=== PATIENT | female | born 1960 | race Caucasian/White ===

== ENCOUNTER 2023-06-20 14:32 | Emergency (ER) | payer BC ==
[~2023-06-20] VITALS: Ht 170.2 cm; Wt 72.6 kg
[2023-06-20 14:47] VITALS: BP 164/80; PULSE 78; RESP 18; O2SAT 98
[2023-06-20] MEDS: FAMOTIDINE 20MG VIAL IV ONE ×2 (15:52→15:56)
[2023-06-20] MEDS: KETOROLAC 15MG/ML VIAL (15MG/ML) IV ONE ×2 (15:53→15:56)
[2023-06-20] MEDS ORDERED: LIDOCAINE HCL 1% 20 ML VIAL ONE (16:39)
[2023-06-20] MEDS ORDERED: ACETAMINOPHEN 500 MG TABLET PO ONE (17:00)
[2023-06-20] MEDS ORDERED: TETANUS/DIPHTHERIA TOXOID [ADULT] 0.5 ML VIAL IM ONE (17:30)
== END 2023-06-20 17:20 | disposition home or self-care (01) ==
LOC: EDH 14:32
DX: S01.81XA Laceration without foreign body of other part of head, initial encounter (principal); Z90.710 Acquired absence of both cervix and uterus; Z98.890 Other specified postprocedural states; Z85.850 Personal history of malignant neoplasm of thyroid; Z88.0 Allergy status to penicillin; Z88.2 Allergy status to sulfonamides; W18.39XA Other fall on same level, initial encounter; Y93.89 Activity, other specified; Y92.89 Other specified places as the place of occurrence of the external cause; Y99.8 Other external cause status
CPT/HCPCS: 99284; 70450; 71045; 12013; 72170; 72125; 70486; J3490; J1885